=== PATIENT | male | born 1990 | race African-American/Black ===

== ENCOUNTER 2018-02-11 10:48 | Emergency (ER) | payer OTHER ==
[2018-02-11] MEDS ORDERED: Ibuprofen TAB* 800 MG PO ONE (11:35)
[2018-02-11] MEDS ORDERED: Tetan/Diph/Pertus SYR(Tdap)* 0.5 ML SYR(BOOSTRIX) use SYR IM ONE (11:35)
--- NOTE | 2018-02-11 12:47 | ED ---
Laceration/Wound HPI - HPI Summary HPI Summary: Rt hand dominant pt here w/ Rt thumb lac prior to arrival. Was washing dishes in soapy bleach water when he was scrubbing the hard to remove cheese and the plate broke, cutting his Rt thumb at the base. Denies n/t/w. Has not taken meds prior to arrival. Would like pain medication. Unsure of last tetanus vaccine - agrees to receive one today. 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 Pain Intensity: 6 - Allergy/Home Medications Allergies/Adverse Reactions: Allergies Allergy/AdvReac Type Severity Reaction Status Date / Time Phenytoin [From Dilantin] Allergy Hives Verified 05/02/16 20:41 PMH/Surg Hx/FS Hx/Imm Hx Previously Healthy: Yes Endocrine/Hematology History: Denies: Hx Anticoagulant Therapy, Hx Blood Disorders, Hx Diabetes, Hx Thyroid Disease Cardiovascular History: Denies: Hx Hypertension Respiratory History: Denies: Hx Asthma, Hx Chronic Obstructive Pulmonary Disease (COPD) GI History: Denies: Hx Ulcer - Immunization History Immunizations Up to Date: Unable to Obtain/Confirm Infectious Disease History: No Infectious Disease History: Denies: Hx Clostridium Difficile, Hx Hepatitis, Hx Human Immunodeficiency Virus (HIV), Hx of Known/Suspected MRSA, Hx Shingles, Hx Tuberculosis, Hx Known/ Suspected VRE, Hx Known/Suspected VRSA, History Other Infectious Disease, Traveled Outside the in Last 30 Days - Family History Known Family History: Positive: None - Social History Occupation: Unemployed Lives: Dormitory/Roommates Alcohol Use: Daily Alcohol Amount: 1 beer a day Substance Use Type: Reports: Marijuana - smokes because "society" Hx Tobacco Use: Yes Smoking Status (MU): Current Every Day Smoker Type: Cigarettes Amount Used/How Often: varies per day Length of Time of Smoking/Using Tobacco: 6 years Have You Smoked in the Last Year: Yes Review of Systems Constitutional: Negative Positive: no symptoms reported Musculoskeletal: Negative Skin: Other - laceration Neurological: Negative Psychological: Normal All Other Systems Reviewed And Are Negative: Yes Physical Exam Triage Information Reviewed: Yes Vital Signs On Initial Exam: Initial Vitals Temp Pulse Resp BP Pulse Ox 97.8 F 74 18 120/75 97 02/11/18 10:57 02/11/18 10:57 02/11/18 10:57 02/11/18 10:57 02/11/18 10:57 Vital Signs Reviewed: Yes Appearance: Positive: Well-Appearing, No Pain Distress, Well-Nourished Skin: Positive: Warm, Skin Color Reflects Adequate Perfusion - linear lac over base of Rt thumb Head/Face: Positive: Normal Head/Face Inspection Eyes: Positive: EOMI ENT: Positive: Hearing grossly normal Respiratory/Lung Sounds: Positive: Breath Sounds Present Cardiovascular: Positive: Pulses are Symmetrical in both Upper and Lower Extremities Musculoskeletal: Positive: Strength/ROM Intact - strength intact all ranges of thumb movement, Limited @ - Rt thumb ROM limited d/t fear of pain Neurological: Positive: Normal, Sensory/Motor Intact, Alert, Oriented to Person Place, Time, CN Intact II-III Psychiatric: Positive: Normal Procedures - Laceration/Wound Repair 1 Location: upper extremity Description: Linear Anesthesia: Local, 1.0%, Lido Length, Depth and Shape: 2.5cm x 3mm Betadine Prep?: Yes Irrigated w/ Saline (ccs): 250 Closure: Single Layer Suture Type: Other - ethilon 5-0 Number of Sutures: 6 Layer Closure?: No Sterile Dressing Applied?: Yes - triple anbx ointment + gauze + TEVIN wrap - hemodynamically stable - nely well Diagnostics - Vital Signs Vital Signs Temp Pulse Resp BP Pulse Ox 02/11/18 10:57 97.8 F 74 18 120/75 97 - Laboratory Lab Statement: Any lab studies that have been ordered have been reviewed, and results considered in the medical decision making process. Laceration Repair Course/Dx - Clinical Impression Provider Diagnoses: Laceration of right thumb Discharge - Sign-Out/Discharge Documenting (check all that apply): Discharge - Discharge Plan Condition: Stable Disposition: HOME Prescriptions: Ibuprofen TAB* [Motrin TAB* 600 MG] 600 mg PO Q6H PRN #20 tab PRN Reason: Pain Patient Education Materials: Finger Laceration (ED) Referrals: No Primary Care Phys,NOPCP [Primary Care Provider] - Additional Instructions: Keep Dressing clean and dry and in place for the next 48 hours. After that time he may remove dressing, gently wash wound with soap and water, rinse well and pat dry with clean cloth. Reapply triple antibiotic ointment and clean gauze dressing. Continue this daily until sutures are removed. Call your PCP to schedule wound recheck and suture removal in 10-14 days. If you do not have a PCP, you may return to ED or go to Urgent care for suture removal. Rest, ice, elevate and take ibuprofen with food as needed for pain/swelling. * If you develop redness, swelling, streaking, purulent drainage, fevers or chills, seek medical attention sooner or return to the emergency department. - Billing Disposition and Condition Condition: STABLE Disposition: HOME
[2018-02-11 12:52] VITALS: BP 113/89
== END 2018-02-11 12:51 | disposition home or self-care (01) ==
LOC: ED 10:48
DX: S61.011A Laceration without foreign body of right thumb without damage to nail, initial encounter (principal); W25.XXXA Contact with sharp glass, initial encounter; Y93.G1 Activity, food preparation and clean up; Y92.9 Unspecified place or not applicable; F17.210 Nicotine dependence, cigarettes, uncomplicated
CPT/HCPCS: 12001; 90471; 90715; 99282; A9270-GY

== ENCOUNTER → 2018-09-22 14:27 | Emergency (ER) | payer OTHER ==
[~2018-09-22 14:27] MED LIST: Azithromycin TAB* 250 MG PO ONE; Ibuprofen TAB* 400 MG PO ONE; Ketorolac INJ* 30 MG/ML 1 ML VIAL IV PUSH ONE; Lidocaine 2% PF * 5 ML VIAL ONE; Sulfamethox/Trimethoprim DS 800/160* TAB PO ONE; cefTRIAXone VIAL(*) 250 MG VIAL IM ONE
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
--- NOTE | 2018-09-22 16:03 | RAD ---
INDICATION: Right hip pain after a fall from a roof COMPARISON: None TECHNIQUE: 3 views of the right hip were obtained. FINDINGS: The visualized bones of the right hip are well-corticated and properly aligned. The joint spaces are normal. There is no radiographic evidence of acute fracture or dislocation. IMPRESSION: Normal radiograph of the right hip. If the patient's symptoms persist follow-up imaging is recommended.
[2018-09-22 16:35] LABS: Urine Appearance Turbid; Urine Blood 2+ (Negative); Urine Color Yellow; Urine Ketones Negative (Negative); Urine Protein 1+(30 mg/dL) (Negative); Urine Red Blood Cell 3+(>10/hpf) (Absent); Urine Specific Gravity 1.024 (1.010-1.030); Urine Urobilinogen Negative (Negative); Urine White Blood Cell 3+(>20/hpf) (Absent)
[2018-09-22 18:02] LABS: ABS Basophils 0 10^3/ul (0-0.2); ABS Eosinophils 0.1 10^3/ul (0-0.6); ABS Lymphocytes 1.6 10^3/ul (1.0-4.8); ABS Monocytes 0.5 10^3/ul (0-0.8); ABS Neutrophils 2.5 10^3/ul (1.5-7.7); ABS Nucleated RBC 0 10^3/ul; Eosinophil % 1.8 % (0-6); Hematocrit 47 % (42-52); Hemoglobin 15.7 g/dl (14.0-18.0); Lymphocyte % 34.6 % (25-47); Mean Corpuscular HGB Conc 34 g/dl (31-36); Mean Corpuscular Hemoglobin 33 pg (27-31); Mean Corpuscular Volume 97 fL (80-94); Nucleated Red Blood Cells % 0.1; Platelet Count 217 10^3/ul (150-450); Red Cell Distribution Width 13 % (10.5-15); White Blood Count 4.7 10^3/ul (3.5-10.8)
[2018-09-22 18:17] LABS: EGFR Non-African American 85.4 (>60)
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
--- NOTE | 2018-09-22 19:34 | ED ---
Progress - Progress Note Progress Note: The pt is a 28 y.o male with a chief complaint of abd pain. The pt is a sign out from Dr. Torey Du. The pain is stated to be in the RLQ. The pt received a Renal Ultrasound in the [facility]. - Results/Orders Results/Orders: Renal Ultrasound revealed, as per radiologist, Sonographically normal kidneys. The ED physician has reviewed this report. Course/Dx - Course Course Of Treatment: The pt recieved a Renal Ultrasound in the [facility]. The pt will be discharged home with a dx of UTI. - Diagnoses Provider Diagnoses: UTI (urinary tract infection) Discharge - Sign-Out/Discharge Documenting (check all that apply): Patient Departure - [place] Home - Discharge Plan Condition: Stable Disposition: HOME Prescriptions: Sulfamethox/Trimethoprim DS* [Bactrim DS 800/160 TAB*] 1 tab PO BID #14 tab Referrals: No Primary Care Phys,NOPCP [Primary Care Provider] - - Attestation Statements Document Initiated by Scribe: Yes Documenting Scribe: Jerad De Provider For Whom Scribe is Documenting (Include Credential): Dr. Sharyn Namibadam Attestation: Jerad Marmolejo scribed for Dr. Adelso Aguilar on 09/22/18 at 1936.
[2018-09-22 20:12] VITALS: BP 130/88
== END | disposition home or self-care (01) ==
LOC: ED 14:27
DX: N39.0 Urinary tract infection, site not specified (principal); R10.31 Right lower quadrant pain; F17.210 Nicotine dependence, cigarettes, uncomplicated
CPT/HCPCS: 36415; 72125; 76775; 80053; 81003; 81015; 83605; 83690; 85025; 87086; 87491; 87591; 96374; 99283; A9270-GY; J0696; J1885